=== PATIENT | female | born 1950 | race Caucasian/White ===

== ENCOUNTER 2023-10-10 13:09 | Emergency (ER) | payer MEDICARE, OTHER, SELFPAY ==
[2023-10-10 13:30] VITALS: BP 154/91
[2023-10-10 15:41] VITALS: BP 169/87
--- NOTE | 2023-10-10 15:45 | ED.GENMED ---
History of Present Illness
General
Chief Complaint: Back Pain
Source: patient
Time Seen by Provider: 10/10/23 15:35
Travel History
Have you had any contact with someone who has COVID-19?: No
Do you have any symptoms of coronavirus? Fever > 100 degrees, chills, cough, shortness of breath, sore throat, loss of taste or smell, muscle aches, or headache?: No
History of Present Illness
History of Present Illness:
73-year-old female presents complaining of left flank pain that radiates into the abdomen and down the leg slightly. This is intermittent in nature. No fever. No known injury. She is an insulin-dependent diabetic with history of hypertension.
She does not take blood thinners. No rash. This just started today. She tried aspirin without relief.
Past History
Past History
ED Past Medical History: HTN, IDDM and Other (kidney stones, ovarian cysts)
Social History
Tobacco: Non-smoker
Personal:
Living: with family
Phy Exam
Physical Exam
Physical Exam:
General: Well-appearing female no acute respiratory distress
HEENT: Normocephalic atraumatic
Heart: Regular rate and rhythm no murmur
Lungs: Clear to auscultation bilaterally no wheezing
Abdomen is soft nontender nondistended no guarding rebound normal bowel
Musculoskeletal exam: Tender over the left flank and also the lumbosacral junction on the left side. Good range of motion to the lower extremities
Neurologic: Ambulating negative straight leg raise bilaterally
Course
Orders/Labs/Results
Orders:
Orders
10/10/23 15:44
Complete Blood Count/With Diff Urgent
Comprehensive Metabolic Panel Urgent
Urinalysis Reflex To Culture Urgent
Date Specimen was Collected: 10/10/23
Time Specimen was Collected: 13:33
Urine Microscopic Reflex Cult Urgent
Urine Culture Urgent
RODOLFO Source: U
Specimen Description:
Date Specimen was Collected: 10/10/23
Time Specimen was Collected: 13:33
10/10/23 15:45
CT Abd/pel Without Iv Or Oral Urgent
Comment:
Reason For Exam: left flank pain
Abnormal Lab Results
10/10/23
15:44
MCV 80.0 L fL
(81.0-99.0)
Chloride 97 L mmol/L
(98-107)
BUN 23 H mg/dl
(7-17)
Glucose 213 H mg/dl
(70-99)
Calcium 10.8 H mg/dl
(8.4-10.2)
AST 93 H U/L
(14-36)
ALT 88 H U/L
(0-35)
Urine Ketones Trace A
(Negative)
Leukocyte Esterase Rfl 2+ A
(Negative)
Urine Bacteria (Reflex) Many A
(Negative)
Urine Glucose 1+ A
(Negative)
10/10/23 15:44
10/10/23 15:44
Vital Signs
Initial and Last Documented VS:
Initial Vital Signs
Temp Pulse Resp BP Pulse Ox
98.8 F 100 16 154/91 95
10/10/23 13:30 10/10/23 13:30 10/10/23 13:30 10/10/23 13:30 10/10/23 13:30
Last Documented Vital Signs
Temp Pulse Resp BP Pulse Ox
98.8 F 100 16 142/72 95
10/10/23 13:30 10/10/23 13:30 10/10/23 13:30 10/10/23 17:00 10/10/23 13:30
*Critical Care Note
Total Time (30-74mins, 75-104mins- exclusive of procedures): Not Applicable
Update Note
Update Note:
Left flank pain. Consider renal colic versus musculoskeletal flank pain versus radiculopathy
Check urine and labs. CT without contrast pending
CT negative for acute finding. Suspect musculoskeletal flank pain perhaps radiculopathy. Recommended anti-inflammatories
Or Tylenol for pain. Follow-up with family doctor
ED Attending Note
-
Portions of this chart may have been created with voice recognition software.� Occasional wrong word or��sound alike� substitutions may have occurred due to the inherent limitations of voice recognition software.
Discharge Plan
Departure
Patient Disposition: Home (Routine Discharge)
Date of Disposition: 10/10/23
Time of Disposition: 19:27
Patient with high blood pressure during this ER visit?: No
Discharge Problem:
Back pain
Instructions: Radiculopathy (DC)
Prescriptions:
No Action
hydrochlorothiazide 25 MG tablet
12.5 mg PO DAILY
metformin 500 MG tablet
500 mg PO BID
insulin glargine [Lantus U-100 Insulin] 1,000 UNITS/10 ML solution
36 units SC HS
Patient Comments:
pt states she took 28 units last night
amlodipine [Norvasc] 10 MG tablet
10 mg PO DAILY
ibuprofen 600 MG tablet
600 mg PO Q4HPRN PRN (Reason: mild cramps) Qty: 90 0RF
Referrals:
Zena Calhoun MD [Family Provider] -
Activity Restrictions/Additional Instructions:
Use ibuprofen or Tylenol for pain. Please return if worsening symptoms otherwise follow-up with family doctor
Interventions
Interventions:
*Risk Screen - Suicide Last Done: 10/10/23 13:30
*General Assessment Last Done: 10/10/23 13:30
*Neglect/Abuse Screening Last Done: 10/10/23 13:30
ED- Fall Risk Assessment Last Done: 10/10/23 15:36
*ED COVID-19 Vaccine History Last Done: 10/10/23 15:36
ED-Musculoskeletal Assessment Last Done: 10/10/23 15:36
Discharge Date and Time
Print Language: ALGERIAN
[2023-10-10 15:52] LABS: % Basophils 0.6 % (0-2); % Eosinophils 3.2 % (0-6); % Immature Granulocytes 0.3 % (0-0.5); % Lymphocytes 26.3 % (20.5-51.1); % Monocytes 5.5 % (1.7-9.3); % Neutrophils 64.1 % (42.2-75.2); Absolute Basophils 0.1 10^3/uL (0-0.2); Absolute Eosinophils 0.3 10^3/uL (0-0.7); Absolute Lymphocytes 2.5 10^3/uL (1.2-3.4); Absolute Monocytes 0.5 10^3/uL (0.1-0.6); Absolute Neutrophils 6.1 10^3/uL (1.4-6.5); Hemoglobin 13.5 g/dL (12.0-16.0); Mean Corp Hgb Conc. 33.8 g/dL (33.0-37.0); Mean Platelet Volume 9.5 fL (7.4-10.4); Nucleated Red Blood Cells % 0 %; Platelet Count 274 10^3/uL (130-400); Red Cell Dist. Width 14.1 % (11.5-14.5); White Blood Cell Count 9.6 10^3/uL (4.8-10.8)
[2023-10-10 15:55] LABS: Urine Albumin Negative (Neg - Trace); Urine Bilirubin Negative (Negative); Urine Character Clear (Clear); Urine Color Yellow; Urine Glucose 1+ (Negative); Urine Ketone Trace (Negative); Urine Leukocyte 2+ (Negative); Urine Nitrite Negative (Negative); Urine Occult Blood Negative (Negative); Urine Specific Gravity 1.025 (<1.030); Urine Urobilinogen Negative (Neg - 1+)
[2023-10-10 16:00] VITALS: BP 146/87
[2023-10-10 16:11] LABS: Urine Squamous Cell >30 /LPF (Few)
[2023-10-10 16:12] LABS: Urine Red Blood Cell 0-2 /HPF (0-2); Urine Urothelial Cell 0-2 /LPF (FEW)
[2023-10-10 16:13] LABS: Urine Bacteria Many (Negative)
[2023-10-10 16:15] LABS: ALT (SGPT) 88 U/L (0-35); AST (SGOT) 93 U/L (14-36); Albumin 4.7 g/dl (3.5-5.0); Alkaline Phosphatase 61 U/L (38-126); Blood Urea Nitrogen 23 mg/dl (7-17); Calcium 10.8 mg/dl (8.4-10.2); Carbon Dioxide 26 mmol/L (22-30); Chloride 97 mmol/L (98-107); Glucose 213 mg/dl (70-99); Sodium 135 mmol/L (135-145); Total Bilirubin 1.1 mg/dl (0.2-1.3); Total Protein 7.7 g/dl (6.3-8.2); eGFR > 60.00
[2023-10-10 17:00] VITALS: BP 142/72
[2023-10-10 19:34] VITALS: BP 176/94
== END 2023-10-10 19:38 | disposition home or self-care (01) ==
LOC: EMR 13:09
PROVIDERS: Emergency Medicine; EMERGENCY PHYSICIAN Emergency Medicine; FAMILY PHYSICIAN Family Medicine
DX: M54.9 Dorsalgia, unspecified (principal); I10 Essential (primary) hypertension; E11.9 Type 2 diabetes mellitus without complications; Z79.4 Long term (current) use of insulin; Z87.442 Personal history of urinary calculi
CPT/HCPCS: 99284; 74176; 80053; 81003; 81015; 85025; 87086

== ENCOUNTER → 2023-12-26 09:16 | Outpatient (REF) | payer MEDICARE, OTHER, SELFPAY | LOC: HWWDC 09:16 | PROVIDERS: ATTENDING PHYSICIAN Family Medicine | DX: Z12.31 Encounter for screening mammogram for malignant neoplasm of breast (principal) | CPT/HCPCS: 77063; 77067 ==

== ENCOUNTER → 2024-05-16 08:13 | Outpatient (REF) | payer MEDICARE, OTHER, SELFPAY ==
[2024-05-16 09:23] LABS: % Basophils 0.7 % (0-2); % Eosinophils 3.6 % (0-6); % Immature Granulocytes 0.2 % (0-0.5); % Lymphocytes 32.5 % (20.5-51.1); % Monocytes 5.3 % (1.7-9.3); % Neutrophils 57.7 % (42.2-75.2); Absolute Basophils 0.1 10^3/uL (0-0.2); Absolute Eosinophils 0.3 10^3/uL (0-0.7); Absolute Lymphocytes 2.7 10^3/uL (1.2-3.4); Absolute Monocytes 0.4 10^3/uL (0.1-0.6); Absolute Neutrophils 4.8 10^3/uL (1.4-6.5); Hematocrit 40.4 % (37.0-47.0); Hemoglobin 13.8 g/dL (12.0-16.0); Mean Corp Hgb Conc. 34.2 g/dL (33.0-37.0); Mean Corpuscular Volume 81.9 fL (81.0-99.0); Mean Platelet Volume 9.6 fL (7.4-10.4); Nucleated Red Blood Cells % 0 %; Platelet Count 256 10^3/uL (130-400); Red Blood Cell Count 4.93 10^6/uL (4.20-5.40); Red Cell Dist. Width 14.2 % (11.5-14.5); White Blood Cell Count 8.3 10^3/uL (4.8-10.8)
[2024-05-16 10:27] LABS: Glycohemoglobin (HgbA1c) 7.7 % (4.0-5.6)
[2024-05-16 11:10] LABS: ALT (SGPT) 43 U/L (0-35); AST (SGOT) 39 U/L (14-36); Albumin 4.4 g/dl (3.5-5.0); Alkaline Phosphatase 52 U/L (38-126); Blood Urea Nitrogen 21 mg/dl (7-17); Calcium 9.9 mg/dl (8.4-10.2); Carbon Dioxide 26 mmol/L (22-30); Chloride 102 mmol/L (98-107); Glucose 154 mg/dl (70-99); HDL Cholesterol 42 mg/dl; LDL Cholesterol, Calculated 112 mg/dl; Potassium 4.7 mmol/L (3.5-5.1); Sodium 142 mmol/L (135-145); Total Bilirubin 1.3 mg/dl (0.2-1.3); Total Cholesterol 180 mg/dl (50-199); Total Protein 7.1 g/dl (6.3-8.2); Triglyceride 134 mg/dl (10-149); Very Low Density Lipoprotein 26 mg/dl (0-30); eGFR > 60.00
[2024-05-16 11:33] LABS: TSH Reflex To Free T4 3.53 uIU/ml (0.47-4.68)
[2024-05-16 11:33] LABS: Microalbumin, Random Urine 1.6 mg/dl (0.6-1.7); Microalbumin/creatinine Ratio 12.3 mg/g
[2024-05-18 15:05] LABS: Intact PTH 49.4 pg/ml (13.6-85.8)
== END ==
LOC: HWLAB 08:13
PROVIDERS: ATTENDING PHYSICIAN Family Medicine
DX: E21.0 Primary hyperparathyroidism (principal); E11.59 Type 2 diabetes mellitus with other circulatory complications; E78.49 Other hyperlipidemia; I10 Essential (primary) hypertension; E03.9 Hypothyroidism, unspecified; R74.8 Abnormal levels of other serum enzymes
CPT/HCPCS: 36415; 80053; 80061; 82043; 82570; 83036; 83970; 84443; 85025

== ENCOUNTER 2024-06-15 11:38 | Emergency (ER) | payer MEDICARE, OTHER, SELFPAY ==
[2024-06-15 11:40] VITALS: BP 162/84
--- NOTE | 2024-06-15 12:41 | ED.GENMED ---
History of Present Illness
General
Chief Complaint: Fall
Time Seen by Provider: 06/15/24 12:09
History of Present Illness
History of Present Illness:
Patient is a 74-year-old woman with history of diabetes presenting to the emergency department after a fall. Patient states that she was on her steps putting up decorations when she missed a step and fell down about 5 steps. She did hit her head
against the wall. Did not lose consciousness. He is not on blood thinners. She does have a mild headache. No neck pain. No numbness tingling. No weakness. She was able to ambulate after the fall. She did not get lightheaded dizzy prior to
the fall
Past History
Past History
ED Past Medical History: HTN, IDDM and Other (kidney stones, ovarian cysts)
Social History
Tobacco: Non-smoker
Personal:
Living: with family
Phy Exam
Physical Exam
Physical Exam:
GENERAL: no acute distress
HEENT: atraumatic, extraocular muscles intact, no signs of entrapment, dentition intact, no other obvious trauma
NECK: no midline tenderness, normal range of motion, no other obvious trauma
BACK: no midline tenderness, no other obvious trauma
CHEST: no tenderness, no flail segment, no subcutaneous emphysema, no other obvious trauma
LUNGS: clear to auscultation bilaterally
CARDIOVASCULAR: regular rate and rhythm
ABDOMEN: soft, non-tender, no masses, no other obvious trauma
PELVIS: stable, no obvious injury
EXTREMITIES: moving all extremities, distal pulses intact, no other obvious trauma
NEUROLOGIC: awake, alert x 3, no focal deficits
Course
Orders/Labs/Results
Orders:
Orders
06/15/24 11:42
CT Head W/o Iv Contrast Urgent
Comment:
Reason For Exam: fall, head strike, generalized headache and nausea
06/15/24 11:43
Cervical Spine wo Contrast CT [CT Cervical Spine W/o Iv Contr] Urgent
Comment:
Reason For Exam: fall down stairs, head strike,
06/15/24 12:42
Acetaminophen [Tylenol] 650 mg PO NOW STA
06/15/24 15:05
Ibuprofen [Motrin] 600 mg PO NOW STA
Vital Signs
Initial and Last Documented VS:
Initial Vital Signs
Temp Pulse Resp BP Pulse Ox
97.6 F 81 18 162/84 98
06/15/24 11:40 06/15/24 11:40 06/15/24 11:40 06/15/24 11:40 06/15/24 11:40
Last Documented Vital Signs
Temp Pulse Resp BP Pulse Ox
97.6 F 81 18 162/84 98
06/15/24 11:40 06/15/24 11:40 06/15/24 11:40 06/15/24 11:40 06/15/24 11:40
MDM/Problems Addressed
Differential Diagnosis Includes:
Patient is a 74-year-old woman presenting to the emergency department after a fall. Vitals are unremarkable and exam is reassuring. Fall at this time mechanical in nature. Given the head trauma will obtain CT scan of the and neck. Will pain
control
*Critical Care Note
Total Time (30-74mins, 75-104mins- exclusive of procedures): Not Applicable
Update Note
Update Note:
CT scan of the head per my interpretation with no obvious hemorrhage. Per the official read no acute abnormality in the head or C-spine. On reevaluation patient is still having mild headache. She states that usually ibuprofen helps. Given the CT
scan did not show any bleeding and is appropriate to give ibuprofen at this time. Will discharge with strict return precautions given.
ED Attending Note
-
Portions of this chart may have been created with voice recognition software.� Occasional wrong word or��sound alike� substitutions may have occurred due to the inherent limitations of voice recognition software.
Discharge Plan
Departure
Patient Disposition: Home (Routine Discharge)
Date of Disposition: 06/15/24
Time of Disposition: 15:04
Patient with high blood pressure during this ER visit?: Yes
Discharge Problem:
Fall
Instructions: Preventing falls in adults
Prescriptions:
No Action
hydrochlorothiazide 25 MG tablet
12.5 mg PO DAILY
metformin 500 MG tablet
500 mg PO BID
insulin glargine [Lantus U-100 Insulin] 1,000 UNITS/10 ML solution
36 units SC HS
Patient Comments:
pt states she took 28 units last night
amlodipine [Norvasc] 10 MG tablet
10 mg PO DAILY
ibuprofen 600 MG tablet
600 mg PO Q4HPRN PRN (Reason: mild cramps) Qty: 90 0RF
Referrals:
Zena Calhoun MD [Family Provider] -
Activity Restrictions/Additional Instructions:
You were seen in the Emergency Department today for a fall. While you were here we performed CT scan, which was reassuring.
We would like for you to follow up with your primary care physician for further evaluation. If you experience fever, worsening of your symptoms, or develop any other new or concerning symptoms, please return to the Emergency Department immediately.
Please see the attached sheet for additional information.
Interventions
Interventions:
*Risk Screen - Suicide Last Done: 06/15/24 11:40
*General Assessment Last Done: 06/15/24 11:40
*Neglect/Abuse Screening Last Done: 06/15/24 11:40
ED-Musculoskeletal Assessment Last Done: 06/15/24 12:10
ED- Neurological Assessment Last Done: 06/15/24 12:10
ED-Skin Assessment Last Done: 06/15/24 12:10
Discharge Date and Time
Print Language: IVORIAN
[2024-06-15] MEDS: TYLENOL 650 MG PO (13:30)
[2024-06-15] MEDS: MOTRIN 600 MG PO (15:22)
[2024-06-15 15:23] VITALS: BP 158/82
== END 2024-06-15 15:24 | disposition home or self-care (01) ==
LOC: EMR 11:38
PROVIDERS: EMERGENCY PHYSICIAN Student in an Organized Health Care Education/Training Program; FAMILY PHYSICIAN Family Medicine
DX: S09.90XA Unspecified injury of head, initial encounter (principal); W10.9XXA Fall (on) (from) unspecified stairs and steps, initial encounter; E11.9 Type 2 diabetes mellitus without complications; I10 Essential (primary) hypertension
CPT/HCPCS: 99284; 70450; 72125

== ENCOUNTER 2024-09-10 10:44 | Emergency (ER) | payer MEDICARE, OTHER, SELFPAY ==
[2024-09-10 10:56] VITALS: BP 168/90
[2024-09-10 11:29] LABS: % Basophils 0.8 % (0-2); % Eosinophils 3.2 % (0-6); % Immature Granulocytes 0.4 % (0-0.5); % Lymphocytes 32.9 % (20.5-51.1); % Monocytes 5.8 % (1.7-9.3); % Neutrophils 56.9 % (42.2-75.2); Absolute Basophils 0.1 10^3/uL (0-0.2); Absolute Eosinophils 0.3 10^3/uL (0-0.7); Absolute Lymphocytes 2.8 10^3/uL (1.2-3.4); Absolute Monocytes 0.5 10^3/uL (0.1-0.6); Absolute Neutrophils 4.8 10^3/uL (1.4-6.5); Hematocrit 40.1 % (37.0-47.0); Hemoglobin 13.4 g/dL (12.0-16.0); Mean Corp Hgb Conc. 33.4 g/dL (33.0-37.0); Mean Corpuscular Hgb 27.3 pg (27.0-31.0); Mean Corpuscular Volume 81.8 fL (81.0-99.0); Mean Platelet Volume 9.6 fL (7.4-10.4); Nucleated Red Blood Cells % 0 %; Platelet Count 242 10^3/uL (130-400); White Blood Cell Count 8.4 10^3/uL (4.8-10.8)
[2024-09-10 11:37] LABS: ALT (SGPT) 37 U/L (0-35); AST (SGOT) 32 U/L (14-36); Albumin 4.6 g/dl (3.5-5.0); Alkaline Phosphatase 85 U/L (38-126); Blood Urea Nitrogen 23 mg/dl (7-17); Calcium 10.6 mg/dl (8.4-10.2); Carbon Dioxide 27 mmol/L (22-30); Chloride 99 mmol/L (98-107); Glucose 235 mg/dl (70-99); Potassium 4.9 mmol/L (3.5-5.1); Sodium 137 mmol/L (135-145); Total Bilirubin 1.5 mg/dl (0.2-1.3); Total Protein 7.1 g/dl (6.3-8.2); eGFR > 60.00
[2024-09-10 12:10] LABS: Urine Albumin 1+ (Neg - Trace); Urine Bilirubin Negative (Negative); Urine Character Clear (Clear); Urine Color Yellow; Urine Glucose 3+ (Negative); Urine Ketone Negative (Negative); Urine Leukocyte 3+ (Negative); Urine Nitrite Negative (Negative); Urine Occult Blood Negative (Negative); Urine Urobilinogen Negative (Neg - 1+)
--- NOTE | 2024-09-10 12:26 | ED.GENMED ---
History of Present Illness
General
Chief Complaint: Back Pain
Source: patient
Time Seen by Provider: 09/10/24 12:19
History of Present Illness
History of Present Illness:
74-year-old female presents complaining onset of lower back pain starting this morning. The pain starts in the center goes across her back and around to the front. Pain is made worse with motion. No associated leg pain. No bowel or bladder
dysfunction. She does have a history of kidney stones. No nausea vomiting. No chest pain or shortness of breath. No known injury. No other complaints at this time
Past History
Past History
ED Past Medical History: HTN, IDDM and Other (kidney stones, ovarian cysts)
Social History
Tobacco: Non-smoker
Personal:
Living: with family
Phy Exam
Physical Exam
Physical Exam:
General: Well-appearing female no acute respiratory distress
HEENT: Normocephalic atraumatic
Heart: Regular rate and rhythm no murmurs
Lungs: Clear no wheeze
Abdomen is soft nontender nondistended no guarding or rebound normal bowel sounds
Extremities: No cyanosis or edema
Musculoskeletal exam: Tender over the lower lumbar spine and lumbosacral junction bilaterally.
Neurologic: Good sensation bilateral legs
Course
Orders/Labs/Results
Orders:
Orders
09/10/24 11:03
Complete Blood Count/With Diff Urgent
Comprehensive Metabolic Panel Urgent
09/10/24 11:56
UA [Urinalysis] Urgent
Date Specimen was Collected: 09/10/24
Time Specimen was Collected: 11:55
Urine Microscopic Urgent
Date Specimen was Collected: 09/10/24
Time Specimen was Collected: 11:55
09/10/24 12:25
Ketorolac [Toradol] 15 mg IV NOW STA
diazePAM [Valium Injection] 5 mg IV NOW STA
09/10/24 12:26
CT Abd/pel Without Iv Or Oral Urgent
Comment:
Reason For Exam: flank pain
Abnormal Lab Results
09/10/24 09/10/24
11:03 11:56
BUN 23 H mg/dl
(7-17)
Glucose 235 H mg/dl
(70-99)
Calcium 10.6 H mg/dl
(8.4-10.2)
Total Bilirubin 1.5 H mg/dl
(0.2-1.3)
ALT 37 H U/L
(0-35)
Ur Leukocyte Esterase 3+ A
(Negative)
Urine WBC 16-20 A /HPF
(0-5)
Urine Bacteria Moderate A
(Negative)
Urine Glucose 3+ A
(Negative)
Urine Albumin 1+ A
(Neg - Trace)
09/10/24 11:03
09/10/24 11:03
Vital Signs
Initial and Last Documented VS:
Initial Vital Signs
Temp Pulse Resp BP Pulse Ox
97.9 F 81 16 168/90 98
09/10/24 10:56 09/10/24 10:56 09/10/24 10:56 09/10/24 10:56 09/10/24 10:56
Last Documented Vital Signs
Temp Pulse Resp BP Pulse Ox
97.9 F 78 19 152/99 96
09/10/24 10:56 09/10/24 15:15 09/10/24 15:15 09/10/24 13:08 09/10/24 15:15
MDM/Problems Addressed
Differential Diagnosis Includes:
Low back pain. Consider musculoskeletal back pain versus renal colic versus radiculopathy. Also consider fracture.
Check labs and urinalysis CT pending Toradol and Valium ordered
*Critical Care Note
Total Time (30-74mins, 75-104mins- exclusive of procedures): Not Applicable
Update Note
Update Note:
CT of abdomen pelvis negative for acute finding. Suspect muscular strain. No infection in urine. Patient feeling better and ambulatory to the bathroom. Will prescribe muscle relaxer and anti-inflammatories for her to take at home
ED Attending Note
-
Portions of this chart may have been created with voice recognition software.� Occasional wrong word or��sound alike� substitutions may have occurred due to the inherent limitations of voice recognition software.
Discharge Plan
Departure
Patient Disposition: Home (Routine Discharge)
Date of Disposition: 09/10/24
Time of Disposition: 15:49
Patient with high blood pressure during this ER visit?: No
Discharge Problem:
Lumbar strain
Instructions: Low Back Pain (DC)
Prescriptions:
New
methocarbamol 500 mg tablet
500 mg PO TID PRN (Reason: spasm) Qty: 10 0RF
meloxicam 7.5 mg tablet
7.5 mg PO BID Qty: 14 0RF
No Action
hydrochlorothiazide 25 MG tablet
12.5 mg PO DAILY
metformin 500 MG tablet
500 mg PO BID
insulin glargine [Lantus U-100 Insulin] 1,000 UNITS/10 ML solution
36 units SC HS
Patient Comments:
pt states she took 28 units last night
amlodipine [Norvasc] 10 MG tablet
10 mg PO DAILY
ibuprofen 600 MG tablet
600 mg PO Q4HPRN PRN (Reason: mild cramps) Qty: 90 0RF
Referrals:
UNKNOWN - PT DOES,NOT KNOW [Family Provider] -
Activity Restrictions/Additional Instructions:
Rest. Use warm compresses. Continue with anti-inflammatories and muscle relaxer. Turn if worse otherwise follow-up with your doctor
Interventions
Interventions:
*Risk Screen - Suicide Last Done: 09/10/24 10:58
*General Assessment Last Done: 09/10/24 12:28
*Neglect/Abuse Screening Last Done: 09/10/24 10:58
*ED- Fall Risk Assessment Last Done: 09/10/24 12:28
*ED COVID-19 Vaccine History Last Done: 09/10/24 12:28
ED-Musculoskeletal Assessment Last Done: 09/10/24 12:28
Discharge Date and Time
Print Language: LITHUANIAN
[2024-09-10 12:34] LABS: Urine Squamous Cell >30 /LPF (Few); Urine White Cell 16-20 /HPF (0-5)
[2024-09-10 12:35] LABS: Urine Bacteria Moderate (Negative); Urine Red Blood Cell None Seen /HPF (0-2)
[2024-09-10 12:38] VITALS: BP 157/75
[2024-09-10] MEDS: TORADOL 15 MG IV (12:44)
[2024-09-10] MEDS: VALIUM INJECTION 5 MG IV (12:45)
[2024-09-10 13:00] VITALS: BP 166/107
[2024-09-10 13:08] VITALS: BP 152/99
== END 2024-09-10 16:20 | disposition home or self-care (01) ==
LOC: EMR 10:44
PROVIDERS: Emergency Medicine; EMERGENCY PHYSICIAN Emergency Medicine
DX: S39.012A Strain of muscle, fascia and tendon of lower back, initial encounter (principal); X58.XXXA Exposure to other specified factors, initial encounter
CPT/HCPCS: 99284; 96374; 96375; 74176; 80053; 81003; 81015; 85025